=== PATIENT | female | born 1955 ===

== ENCOUNTER 2019-10-26 11:00 | Outpatient (RCR) | payer OTHER, SELFPAY ==
--- NOTE | 2019-10-07 15:49 | OTOPEVAL ---
OT EVALUATION REPORT 10/07/2019 Thank you for referring this patient to [facility]. Skilled OT indicated 1x/week for 4 weeks. Please review, sign, date and return this plan of care CANDY. I agree with and certify that the following plan of care is medically necessary. Referring Physician Date Admitting Provider: Attending Provider: Joe Weathers MD *OT Outpatient Evaluation Therapy Assessment Status Assessment Status Assessment Status Evaluation Outpatient Past Medical History Neurological History Hx Dementia Yes Hx Epilepsy Yes Hx Seizures Yes Gastrointestinal History Hx Bowel Surgery Yes: part of sm. intestine removed 2/ CA Musculoskeletal History Hx Arthritis Yes Hx Fractures Yes: L arm, L clavicle Reproductive History Hx Hysterectomy Yes Other History Hx Cancer Yes: colon cancer Evaluation Information Problem Diagnosis (R) wrist and hand pain s/p fall Onset May 2019 Additional Evaluation Detail Patient had a seizure which caused her to fall and hit her arm on a dresser. X-ray from 05/2019 showed a hairline fracture of the 1st metacarpal. Prior Level of Function Activity Level (Last 3 Months) Hand Dominance Right Activity of Daily Living Ability Needs Some Help Indoor/Home Mobility Independent Functional Cognition (Planning, Shopping Needs Some Help , Taking Medications) Cooking Yes Cleaning No Laundry No Shopping No Driving No Comments Additional Prior Level of Function Pt is typically independent Comments with ADLs. Has been needing intermittent assist with toileting due to right hand weakness and pain. She has been having increased difficulty with cooking because she cannot lift heavy pots/pans due to the pain. Pain Assessment Timing of Pain Assessment Timing of Pain Assessment Assessment Pain Scale Pain Scale Used Numeric (1 - 10) Self Report Pain Assessment Left Arm(s) Reported Pain Level 0 Pain Description Sharp,Shooting Current Pain Intensity 0 Lowest Pain Intensity 0 Greatest Pain Intensity 4 Other Pain Aggravating Factors Increased pain to 4/10 with
--- NOTE | 2019-10-15 11:58 | PCOTNOTE ---
Pt's daughter called and cancelled her appt this morning. Pt's daughter thought that pt's appt was this afternoon and was not interested in rescheduling appt. Pt's daughter stated that she would bring her next week to her scheduled appt.
--- NOTE | 2019-10-26 11:23 | OTOPEVAL ---
OCCUPATIONAL THERAPY RE-EVALUATION AND DISCHARGE 10/26/2019 Thank you for referring this patient to [facility]. At this time Donna has achieved functional ROM and strength. She is independent with all instructed materials. Please review, sign, date and return this discharge note CANDY. I agree with and certify that the following plan of care is medically necessary. Referring Physician Date Attending Provider: NEFTALY RENAE MD *OT Outpatient Re-Evaluation Therapy Assessment Status Assessment Status Assessment Status Re-evaluation Evaluation Information Problem Diagnosis wrist/forearm pain s/p fall Additional Evaluation Detail Donna has attended 3 outpatient OT visits for right wrist pain, stiffness, and weakness after sustaining a fall onto the right wrist/hand. She has made excellent progress since SOC. She has been compliant with all instructed materials. Subjective Information Donna reports returning to Query Text:As Reported By Patient/ independence with ADLs and Family cooking. She is now able to use the R hand for toileting tasks and is able to lift and move pots and pans without pain. She and her daughter reports no functional limitations at this time. Pain Assessment Timing of Pain Assessment Timing of Pain Assessment Assessment Self Report Self Report Pain Level 0 Pain Score Pain Score 0: Self Report Upper Extremity Range of Motion Wrist Range of Motion Right Wrist Flexion - Active 55 Wrist Extension - Active 65 Wrist Radial Deviation - Active 15 Wrist Ulnar Deviation - Active 35 Wrist Range of Motion Comments Measurements from initial evaluation on 10/07/19: -flexion 30* -extension 55* -UD 30* All have improved back to normal limits. She is independent with forearm and wrist strengthening with 1# free weight. Edu to complete HEP for another 6 weeks and progress to 2#. Finger Range of Motion Bilateral Reason Not Measured WNL/Left,WNL/Right Thumb Range of Motion Right Reason Not Measured WNL/Right Upper Extremity Muscle Strength Testing Elbow/Forearm Right Elbow Flexion Strength
== END 2019-10-26 12:21 | disposition home or self-care (01) ==
LOC: ANHOT 11:00
DX: M25.531 Pain in right wrist (principal)
CPT/HCPCS: 97110; 97140; 97165